=== PATIENT | male | born 1970 | race African-American/Black ===

== ENCOUNTER 2016-06-16 21:52 | Emergency (ER) | payer OTHER ==
[~2016-06-16 21:52] MED LIST: NO MEDICATIONS
[2016-06-16] MEDS ORDERED: PREDNISONE (22:07)
== END 2016-06-16 22:07 | disposition home or self-care (01) ==
LOC: SED 21:52
DX: G51.0 Bell's palsy (principal); I10 Essential (primary) hypertension; F17.210 Nicotine dependence, cigarettes, uncomplicated
CPT/HCPCS: 99282